=== PATIENT | female | born 1995 | race Caucasian/White ===

== ENCOUNTER 2020-10-03 11:51 | Inpatient (IN) | payer OTHER ==
[~2020-10-03] VITALS: Ht 170.2 cm; Wt 103.4 kg
--- NOTE | 2020-10-03 12:47 | NUR ---
RT COLLECTED COVID 19 SWAB WITH NO COMPLICATIONS. RT USED THE CEPHEID RAPID TEST THROUGH [facility] PER DR REQUEST AT THIS TIME.
--- NOTE | 2020-10-04 02:02 | PR ---
[facility] [address] [place], [place] [address] Signed Progress Notes IP Datetime Report Generated by CPN: 10/04/2020 02:02 PROGRESS NOTES: [id number] Impression: Normal Progression of Labor; Reassuring Heart Rate Procedures: Artificial ROM; Sterile Vag Exam Plan: Continue Present Management Informed Consent Obtain: Vaginal Delivery VITAL SIGNS: [id number] Vital Signs: Reviewed EXAM: [id number] Dilatation: 2.5 Effacement: 60 Station: -2 Contractions: Irregular MEMBRANES: [id number] Comments: Pt seen and examined. S/P epidural but c/o breakthrough discomfort and desires rebolus. AROM performed w/out difficulty. Discussed Cat 1 tracing and anticipated course of remainder of labor. All questions answered. Anesthesia to return to reevaluate pt. FETUS A: [id number] FHR Baseline: 130 Variability: Moderate 6-25bpm Accelerations: 15X15 Decelerations: None FHR Category: Category I Presentation: Vertex Comments on Fetus A: No evidence of metabolic acidosis FETUS B: [id number] Signing Physician: Julia Burroughs DO Copies: ~ *Electronically Signed* 10/04/20 020 JULIA BURROUGHS DO PATIENT NAME: CHAVEZ DOWNING PROGRESS NOTE DATE OF : [birth year] PHYSICIAN: JULIA BURROUGHS DO RPT #: [id number] REPORT IS CONFIDENTIAL AND NOT TO BE RELEASED WITHOUT AUTHORIZATION
--- NOTE | 2020-10-04 08:10 | PR ---
[facility] [address] [place], [place] [address] Signed Progress Notes IP Datetime Report Generated by CPN: 10/04/2020 08:10 PROGRESS NOTES: [id number] Impression: Normal Progression of Labor; Reassuring Heart Rate Procedures: Sterile Vag Exam Plan: Continue Present Management; Anticipate Vaginal Delivery Informed Consent Obtain: Vaginal Delivery VITAL SIGNS: [id number] Vital Signs: Reviewed EXAM: [id number] Dilatation: 5.0 Effacement: 80 Station: -2 Contractions: Irregular MEMBRANES: [id number] ROM Note: Dr Burroughs in for AROM Comments: Pt seen and examined. Doing well. Feeling more pressure and contraction pain. C/O headache. Will have anesthesia reevaluate pt for possible bolus. Continue pitocin per protocol. No other questions or concerns. Anticipate FETUS A: [id number] FHR Baseline: 130 Variability: Moderate 6-25bpm Accelerations: 15X15 Decelerations: None FHR Category: Category I Presentation: Vertex Comments on Fetus A: No evidence of metabolic acidosis FETUS B: [id number] Signing Physician: Julia Burroughs DO Copies: ~ *Electronically Signed* 10/04/20 0810 JULIA BURROUGHS DO PATIENT NAME: CHAVEZ DOWNING PROGRESS NOTE DATE OF : [birth year] PHYSICIAN: JULIA BURROUGHS DO RPT #: [id number] REPORT IS CONFIDENTIAL AND NOT TO BE RELEASED WITHOUT AUTHORIZATION
--- NOTE | 2020-10-05 08:43 | PR ---
[facility] [address] [facility] [place], [place] [address] Signed PP Progress Notes Datetime Report Generated by CPN: 10/05/2020 08:43 SUBJECTIVE: [id number] Pain: Within Normal Limits Nausea/Vomiting: Denies Flatus: Yes Bowel Movement: No Vital Signs: [id number] Vital Signs: Reviewed; Within Normal Limits Cardiovascular: Normal Respiratory: Normal Abdomen/Uterus: Normal Lochia: Normal Vulva/Perineum: Not Done Breasts: Not Done CVA Tenderness: Normal Extremities: Normal Incision: Not Applicable Progress: Normal Exam Comments: Fundus firm U-2 nontender IMPRESSION/PLAN/PROCEDURES: [id number] Impression: Normal Progression Plan: Discharge Progress Notes: Pt seen and examined. Doing well. Ambulating, voiding, and tolerating full diet. Pain and lochia minimal. well. No fevers/chills or other concerns. Desires d/c home. Discussed d/c instructions in detail. All questions answered. Discussed prior plan in place w/ PCP regarding hx of pp depression; pt will remain in close contact w/ me and her PCP should symptoms develop. Signing Physician: Julia Burroughs DO Copies: ~ *Electronically Signed* 10/05/20 0843 JULIA BURROUGHS DO PATIENT NAME: CHAVEZ DOWNING PROGRESS NOTE DATE OF : [birth year] PHYSICIAN: JULIA BURROUGHS DO RPT #: [id number] REPORT IS CONFIDENTIAL AND NOT TO BE RELEASED WITHOUT AUTHORIZATION
--- NOTE | 2020-10-06 07:42 | PR ---
[facility] [address] [facility] [place], [place] [address] Signed PP Progress Notes Datetime Report Generated by CPN: 10/06/2020 07:42 SUBJECTIVE: [id number] Pain: Within Normal Limits Nausea/Vomiting: Denies Flatus: Yes Bowel Movement: No Vital Signs: [id number] Vital Signs: Reviewed Cardiovascular: Normal Respiratory: Normal Abdomen/Uterus: Normal Lochia: Normal Vulva/Perineum: Not Done Breasts: Not Done CVA Tenderness: Normal Extremities: Normal Incision: Not Applicable Progress: Normal Exam Comments: Fundus firm U-2 nontender IMPRESSION/PLAN/PROCEDURES: [id number] Impression: Normal Progression Plan: Discharge Progress Notes: Pt seen and examined. Doing well. Ambulating, voiding, and tolerating full diet. Pain and lochia minimal. w/ support from RNs/. Desires d/c home today. Reviewed discharge instructions in detail. All questions answered. Signing Physician: Julia Burroughs DO Copies: ~ *Electronically Signed* 10/06/20 0742 JULIA BURROUGHS DO PATIENT NAME: CHAVEZ DOWNING PROGRESS NOTE DATE OF : [birth year] PHYSICIAN: JULIA BURROUGHS DO RPT #: [id number] REPORT IS CONFIDENTIAL AND NOT TO BE RELEASED WITHOUT AUTHORIZATION
--- NOTE | 2020-10-10 15:53 | PATH ---
[facility] [address] [place], [place] [address] Signed SPECIMEN(S): A PLACENTA SPECIMEN SOURCE: A. PLACENTA CLINICAL HISTORY: IUGR (added formalin at 12:27 p.m. 10/04/20 Spontaneous. Gestational age: 38 07/11 Infants weight: 2360 g. Score: 9. Rh: A+ Rhogam: No. Antibody screen: Neg. Maternal Serologies: Rubella: Immune. RPR: Neg. Hepatitis screen: Neg. GBS: Neg. Specific issues of concern: SGA/IUGR. Birthweight <10th percentile. Induction. FINAL PATHOLOGIC DIAGNOSIS: Placenta, third trimester: - Rollins placenta, small for stated gestational age of 38 weeks, 1 day. - Umbilical cord: Three-vessel umbilical cord with no histopathologic abnormality. - membranes: No histopathologic abnormality. - Placental disc: Chorionic villi with mature villous morphology, chronic villitis of unknown etiology, lymphohistiocytic intervillositis. - See comment. COMMENT: A CMV immunohistochemical stain (with appropriately staining controls) on a manufacturing sales representative section of the placental disc is negative. NAL:cml:C2NR MICROSCOPIC EXAMINATION: Histologic sections of all submitted blocks are examined by light microscopy. These findings, together with the gross examination, support the pathologic diagnosis. GROSS DESCRIPTION: The specimen, labeled "JR,, placenta" is received in formalin and consists of a rollins discoid placenta with the following parameters: Umbilical cord: Insertion eccentric, measurement 31.8 x 1.0 cm; trivascular. Cord coiling index (per 10 cm): Four. Lesions: Dilated vessels with clot material. Membranes: Insertion site: 80% circum marginate, andrew/translucent, rupture site unable to determine. Intact. Other: Adherent clot material. Chorionic Plate: Normal radiating vascular pattern, blue-purple and shiny. PATIENT NAME: CHAVEZ DOWNING PATHOLOGY DATE OF : [birth year] REPORT #: [id number] PHYSICIAN: [facility] PCP: SILVESTRE CUMMINS PA-C REPORT IS CONFIDENTIAL AND NOT TO BE RELEASED WITHOUT AUTHORIZATION [facility] [address] [place], [place] [address] Signed Lesions: Not grossly identified. Other: Not grossly identified. Maternal Surface: Normal cotyledons, fragmented. Lesions: Not grossly identified. Measurement: 16.8 x 15.0 x 2.8 cm. Weight (trimmed): 347 g Cut Surface: Maroon and spongy. Lesions: Central and peripheral firm andrew lesions measuring up to 1.5 cm in greatest dimension involving less than 10% of parenchyma volume. Basal plate fibrin 0.1 cm in thickness. Other Findings: Not grossly identified. Cassette Summary: (A1) membranes and umbilical cord (A2) parenchymal lesion (A3) placenta parenchyma (A4) placenta parenchyma. AT(under the direct supervision of a pathologist) The Gross Description was prepared using a voice recognition system. The report was reviewed for accuracy; however, sound-alike word errors, addition and/or deletions may occur. If there is any question about this report, please contact Client Services. PERFORMING LABORATORY: The technical component was performed by [employer], [address] [place] [id number] (Headwaitress: Magaly Alexander MD; CLIA# [id number]). Professional interpretation was performed by [employer], [facility], [facility] [address] [place] [id number] (CLIA# [id number]). Diagnostician: Susanna Segal MD Pathologist Electronically Signed 10/10/2020 Copies: ~ PATIENT NAME: CHAVEZ DOWNING PATHOLOGY DATE OF : [birth year] REPORT #: [id number] PHYSICIAN: [facility] PCP: SILVESTRE CUMMINS PA-C REPORT IS CONFIDENTIAL AND NOT TO BE RELEASED WITHOUT AUTHORIZATION
== END 2020-10-06 10:45 | disposition home or self-care (01) | DRG 807 ==
LOC: FBC 11:51
PROVIDERS: ADMIT Obstetrics & Gynecology; ATTEND Obstetrics & Gynecology
PROC: 10E0XZZ Delivery of Products of Conception, External Approach (ICD-10-PCS; principal; 2020-10-04)
PROC: 4A1HX4Z Monitoring of Products of Conception, Cardiac Electrical Activity, External Approach (ICD-10-PCS; 2020-10-04)
PROC: 10907ZC Drainage of Amniotic Fluid, Therapeutic from Products of Conception, Via Natural or Artificial Opening (ICD-10-PCS; 2020-10-04)
PROC: 3E0P7VZ Introduction of Hormone into Female Reproductive, Via Natural or Artificial Opening (ICD-10-PCS; 2020-10-04)
PROC: 3E0R3BZ Introduction of Anesthetic Agent into Spinal Canal, Percutaneous Approach (ICD-10-PCS; 2020-10-04)
DX: O36.5930 Maternal care for other known or suspected poor fetal growth, third trimester, not applicable or unspecified (principal); Z37.0 Single live birth; Z3A.38 38 weeks gestation of pregnancy; O71.82 Other specified trauma to perineum and vulva
CPT/HCPCS: 01960; 36415; 85027; A9270; C9803; J2405; J2590; J2795; J7121; U0003